=== PATIENT | male | born 1985 | race Caucasian/White ===

== ENCOUNTER 2020-07-25 08:44 | Outpatient (CLI) | payer OTHER, SELFPAY | END 2020-07-25 08:45 | LOC: ANHCOVIDVC 08:44 | PROVIDERS: PCP Family Medicine | DX: Z23 Encounter for immunization (principal) | CPT/HCPCS: 0001A; 91300 ==

== ENCOUNTER 2020-08-15 08:31 | Outpatient (CLI) | payer OTHER, SELFPAY | END 2020-08-15 08:32 | disposition home or self-care (01) | LOC: ANHCOVIDVC 08:31 | PROVIDERS: PCP Family Medicine | DX: Z23 Encounter for immunization (principal) | CPT/HCPCS: 0002A; 91300 ==